=== PATIENT | male | born 1960 | race Caucasian/White ===

== ENCOUNTER 2017-08-12 02:45 | Inpatient (IN) | payer MEDICAID ==
[~2017-08-12] VITALS: Ht 175.3 cm; Wt 69.4 kg
[~2017-08-12 02:45] MED LIST: BENZ0.5T PO; CETI10CA PO; DOCU240C31 PO; DULO30CA2 PO; FEXO180T15 PO; GABA-827 PO; IBUP-1223 PO; LIDO2AMP TP; LIPA1CAP54 PO; LORA-446 PO; MAGN400T26 PO; METH500T7 PO; NAPR500T PO; NICO1PAT16 TD; OXYC1TAB7 PO; OXYC5TAB3 PO; PANT40TA5 PO; PRED20TA PO; RISP2TAB35 PO; TRAM50TA2 PO
[2017-08-12] MEDS ORDERED: SODIUM CHLORIDE 0.9% 1,000ML IVBOLUS ONE ×2 (03:00→04:30)
[2017-08-12] MEDS ORDERED: ONDANSETRON 2MG/ML, 2ML IVPush ONE (03:00)
[2017-08-12] MEDS ORDERED: SODIUM CHLORIDE FLUSH 10ML SYR IVF ONE (03:00)
[2017-08-12] MEDS ORDERED: OXYC5CAP2 PO (03:01)
[2017-08-12] MEDS: MORPHINE SULFATE 4 MG/ML, 1ML IVPush PRN ×2 (03:22→03:55)
[2017-08-12] MEDS ORDERED: OXYC15TA PO (03:30)
[2017-08-12 03:32] LABS: BLOOD UREA NITROGEN 5 mg/dL (7-18)
[2017-08-12 03:33] LABS: ASPARTATE AMINO TRANSFERASE 10 U/L (15-37)
[2017-08-12 03:36] LABS: HEMATOCRIT 34.5 % (39.2-51.8); HEMOGLOBIN 11.7 g/dL (13.7-18.0); WHITE BLOOD COUNT 10.7 x10^3/uL (3.4-10)
[2017-08-12] MEDS ORDERED: MORPHINE SULFATE 4 MG/ML, 1ML ONE (03:53)
[2017-08-12] MEDS ORDERED: POTASSIUM CHLORIDE 20 MEQ in SODIUM CHLORIDE 0.9% 250 ML IV ONE (05:00)
[2017-08-12] MEDS ORDERED: MORPHINE SULFATE 4 MG/ML, 1ML IVPush ONE (05:30)
[2017-08-12 07:20] VITALS: BP 135/87
[2017-08-12] MEDS: morphine SULFATE 10 MG/ML, 1ML IVPush PRN ×5 (09:15→21:59)
[2017-08-12] MEDS ORDERED: hydrALAzine 20 MG/ML, 1ML IVPush PRN (09:30)
[2017-08-12] MEDS ORDERED: ONDANSETRON 2MG/ML, 2ML IVPush PRN (09:30)
[2017-08-12] MEDS ORDERED: LORazepam 1MG TABLET PO PRN (09:30)
[2017-08-12] MEDS: NICOTINE 14MG/24 HR PATCH.TD24 TD SCH (09:30)
[2017-08-12] MEDS ORDERED: HALOPERIDOL 5 MG/ML IM PRN (09:30)
[2017-08-12] MEDS ORDERED: POTASSIUM CHLORIDE 40 MEQ in SODIUM CHLORIDE 0.9% 500 ML IV ONE (10:00)
[2017-08-12] MEDS: SODIUM CHLORIDE 0.9% 1,000 ML IV SCH (10:26)
[2017-08-12] MEDS: PANTOPRAZOLE 40 MG IV IVPush SCH (10:29)
[2017-08-12 14:20] VITALS: BP 137/95
[2017-08-12 14:33] LABS: DAU SCREEN DISCLAIMER
[2017-08-12] MEDS ORDERED: METHOCARBAMOL 500 MG TABLET PO SCH (16:00)
[2017-08-12] MEDS: GABAPENTIN 400 MG CAPSULE PO SCH ×2 (16:34→21:35)
[2017-08-12 19:06] VITALS: BP 161/80
[2017-08-12] MEDS ORDERED: RISPERIDONE 2 MG TABLET PO SCH (21:00)
[2017-08-12] MEDS ORDERED: DULOXETINE 30 MG CAPSULE.DR PO SCH (21:00)
[2017-08-12] MEDS: BENZTROPINE 1 MG TABLET PO SCH (21:00)
[2017-08-12] MEDS: METHOCARBAMOL 750 MG TABLET PO SCH (21:36)
[2017-08-12] MEDS: RISPERIDONE 1 MG TABLET PO SCH (21:36)
[2017-08-13] MEDS: SODIUM CHLORIDE 0.9% 1,000 ML IV SCH ×3 (00:58→19:23)
[2017-08-13 01:53] VITALS: BP 164/95
[2017-08-13 04:48] LABS: BLOOD UREA NITROGEN 6 mg/dL (7-18)
[2017-08-13 04:52] LABS: ASPARTATE AMINO TRANSFERASE 9 U/L (15-37)
[2017-08-13] MEDS: METHOCARBAMOL 750 MG TABLET PO SCH ×4 (05:40→20:38)
[2017-08-13 07:49] VITALS: BP 150/87
[2017-08-13] MEDS: PANTOPRAZOLE 40 MG IV IVPush SCH (08:26)
[2017-08-13] MEDS: morphine SULFATE 10 MG/ML, 1ML IVPush PRN ×5 (08:26→22:32)
[2017-08-13] MEDS: DULOXETINE 30 MG CAPSULE.DR PO SCH (08:34)
[2017-08-13] MEDS: BENZTROPINE 1 MG TABLET PO SCH ×2 (08:34→20:38)
[2017-08-13] MEDS: GABAPENTIN 400 MG CAPSULE PO SCH ×3 (08:34→20:38)
[2017-08-13] MEDS: NICOTINE 14MG/24 HR PATCH.TD24 TD SCH (08:34)
[2017-08-13 13:30] VITALS: BP 165/84
[2017-08-13 19:07] VITALS: BP 146/99
[2017-08-13] MEDS: RISPERIDONE 1 MG TABLET PO SCH (20:38)
[2017-08-14] MEDS: morphine SULFATE 10 MG/ML, 1ML IVPush PRN ×3 (01:39→08:00)
[2017-08-14 01:41] VITALS: BP 156/87
[2017-08-14 05:26] LABS: BLOOD UREA NITROGEN 5 mg/dL (7-18)
[2017-08-14] MEDS: METHOCARBAMOL 750 MG TABLET PO SCH (05:52)
[2017-08-14] MEDS ORDERED: D5%-0.45NACL+KCL 20MEQ 1,000 ML IV SCH (06:00)
[2017-08-14 07:05] VITALS: BP 161/92
[2017-08-14] MEDS: PANTOPRAZOLE 40 MG IV IVPush SCH (08:00)
[2017-08-14] MEDS: DULOXETINE 30 MG CAPSULE.DR PO SCH (08:01)
[2017-08-14] MEDS: NICOTINE 14MG/24 HR PATCH.TD24 TD SCH (08:01)
[2017-08-14] MEDS: BENZTROPINE 1 MG TABLET PO SCH (08:01)
[2017-08-14] MEDS: GABAPENTIN 400 MG CAPSULE PO SCH (08:01)
== END 2017-08-14 10:00 | disposition left against medical advice (07) | DRG 438 ==
LOC: ED 03:35 → EDIP 04:32 → 3NE 07:09
PROVIDERS: ADMIT Internal Medicine; ATTEND Internal Medicine
DX: K85.20 Alcohol induced acute pancreatitis without necrosis or infection (principal); E43 Unspecified severe protein-calorie malnutrition; E87.1 Hypo-osmolality and hyponatremia; Z68.22 Body mass index [BMI] 22.0-22.9, adult; E87.6 Hypokalemia; F10.10 Alcohol abuse, uncomplicated; F31.9 Bipolar disorder, unspecified; F41.9 Anxiety disorder, unspecified; J44.9 Chronic obstructive pulmonary disease, unspecified; M79.7 Fibromyalgia; N40.0 Benign prostatic hyperplasia without lower urinary tract symptoms; Z72.0 Tobacco use; Z91.14 Patient's other noncompliance with medication regimen
CPT/HCPCS: 36415; 80048; 80053; 80307; 81003; 82962; 83690; 83735; 84100; 85025; 93005; 96361; 96374; 96375; 96376; J2405; J3480; C9113; G0479; J2270; J7030; J7040

== ENCOUNTER 2017-08-19 01:15 | Inpatient (IN) | payer MEDICAID ==
[~2017-08-19] VITALS: Ht 175.3 cm; Wt 68.5 kg
[~2017-08-19 01:15] MED LIST changes: +NICO-487 TD; -NICO1PAT16 TD; +OXYC15TA PO; +OXYC5CAP2 PO
[2017-08-19] MEDS ORDERED: HYDROmorphone 1 MG/ML, 1ML IVPush PRN (01:30)
[2017-08-19] MEDS ORDERED: SODIUM CHLORIDE 0.9% 1,000ML IVBOLUS ONE (01:30)
[2017-08-19] MEDS ORDERED: METOCLOPRAMIDE 5 MG/ML, 2ML IVPush ONE (01:30)
[2017-08-19] MEDS ORDERED: DIPHENHYDRAMINE 50 MG/ML, 1ML IVPush ONE (01:30)
[2017-08-19] MEDS ORDERED: METOCLOPRAMIDE 5 MG/ML, 2ML ONE (01:38)
[2017-08-19] MEDS ORDERED: DIPHENHYDRAMINE 50 MG/ML, 1ML ONE (01:38)
[2017-08-19] MEDS ORDERED: HYDROmorphone 1 MG/ML, 1ML ONE ×2 (01:39→03:23)
[2017-08-19 01:49] LABS: HEMATOCRIT 33.6 % (39.2-51.8); HEMOGLOBIN 11.5 g/dL (13.7-18.0); WHITE BLOOD COUNT 8.1 x10^3/uL (3.4-10)
[2017-08-19 02:00] LABS: BLOOD UREA NITROGEN 3 mg/dL (7-18)
[2017-08-19 02:04] LABS: ASPARTATE AMINO TRANSFERASE 12 U/L (15-37)
[2017-08-19] MEDS ORDERED: POTASSIUM CHLORIDE 40 MEQ in SODIUM CHLORIDE 0.9% 500 ML IV ONE (02:30)
[2017-08-19] MEDS ORDERED: NS + 40MEQ KCL 0 ML IV ONE (02:31)
[2017-08-19] MEDS ORDERED: ALBUTEROL/IPRATROPIUM 2.5MG/0.5MG, 3 ML NPPB ONE (03:00)
[2017-08-19] MEDS ORDERED: methylPREDNISolone SOD SUCC 125 MG/2 ML IVP ONE (03:00)
[2017-08-19] MEDS ORDERED: ALBUTEROL/IPRATROPIUM 2.5MG/0.5MG, 3 ML ONE (03:08)
[2017-08-19] MEDS ORDERED: methylPREDNISolone SOD SUCC 125 MG/2 ML ONE (03:09)
[2017-08-19] MEDS ORDERED: HYDROmorphone 1 MG/ML, 1ML IV ONE (04:00)
[2017-08-19] MEDS ORDERED: ALBUTEROL/IPRATROPIUM 2.5MG/0.5MG, 3 ML NPPB PRN (04:30)
[2017-08-19 06:11] VITALS: BP 150/89
[2017-08-19] MEDS ORDERED: ONDANSETRON 2MG/ML, 2ML IVPush PRN (06:30)
[2017-08-19] MEDS ORDERED: hydrALAzine 20 MG/ML, 1ML IVPush PRN (06:30)
[2017-08-19] MEDS: ENOXAPARIN 40 MG/0.4 ML SQ SCH (06:39)
[2017-08-19] MEDS: morphine SULFATE 10 MG/ML, 1ML IVPush PRN ×5 (06:39→22:31)
[2017-08-19] MEDS ORDERED: ALBUTEROL/IPRATROPIUM 2.5MG/0.5MG, 3 ML NPPB SCH (07:00)
[2017-08-19] MEDS: POTASSIUM CHLORIDE 20 MEQ in LACTATED RINGERS 1,000 ML IV SCH ×2 (08:29→17:45)
[2017-08-19] MEDS: PANTOPRAZOLE 40 MG IV IVPush SCH (09:39)
[2017-08-19 13:10] VITALS: BP 129/67
[2017-08-19 18:41] VITALS: BP 139/75
[2017-08-20] MEDS: morphine SULFATE 10 MG/ML, 1ML IVPush PRN ×8 (01:32→23:09)
[2017-08-20 01:47] VITALS: BP 155/76
[2017-08-20] MEDS: POTASSIUM CHLORIDE 20 MEQ in LACTATED RINGERS 1,000 ML IV SCH ×2 (03:44→21:11)
[2017-08-20] MEDS: ENOXAPARIN 40 MG/0.4 ML SQ SCH (06:14)
[2017-08-20 06:26] LABS: HEMATOCRIT 30.9 % (39.2-51.8); HEMOGLOBIN 10.4 g/dL (13.7-18.0); WHITE BLOOD COUNT 9.1 x10^3/uL (3.4-10)
[2017-08-20 06:40] LABS: ASPARTATE AMINO TRANSFERASE 9 U/L (15-37); BLOOD UREA NITROGEN 7 mg/dL (7-18)
[2017-08-20] MEDS ORDERED: ALBUTEROL/IPRATROPIUM 2.5MG/0.5MG, 3 ML NPPB PRN (07:00)
[2017-08-20] MEDS: PANTOPRAZOLE 40 MG IV IVPush SCH (07:36)
[2017-08-20 08:30] VITALS: BP 166/98
[2017-08-20] MEDS ORDERED: POTASSIUM PHOSPHATE 44 MEQ in SODIUM CHLORIDE 0.9% 500 ML IV ONE (10:00)
[2017-08-20 13:27] VITALS: BP 140/82
[2017-08-20 20:00] VITALS: BP 147/89
[2017-08-20] MEDS ORDERED: METHOCARBAMOL 500 MG TABLET PO ONE (20:30)
[2017-08-21 01:44] VITALS: BP 138/80
[2017-08-21] MEDS: morphine SULFATE 10 MG/ML, 1ML IVPush PRN ×7 (02:11→21:32)
[2017-08-21 05:34] LABS: BLOOD UREA NITROGEN 3 mg/dL (7-18)
[2017-08-21] MEDS: ENOXAPARIN 40 MG/0.4 ML SQ SCH (06:30)
[2017-08-21 07:41] VITALS: BP 142/85
[2017-08-21] MEDS: PANTOPRAZOLE 40 MG IV IVPush SCH (08:59)
[2017-08-21] MEDS: POTASSIUM CHLORIDE 20 MEQ in LACTATED RINGERS 1,000 ML IV SCH ×2 (08:59→21:32)
[2017-08-21] MEDS: METHOCARBAMOL 750 MG TABLET PO PRN ×3 (10:42→20:05)
[2017-08-21] MEDS ORDERED: MAGNESIUM SULFATE PMX 2GM/50ML 50 ML IV ONE (11:00)
[2017-08-21 16:13] VITALS: BP_SYST 161; BP_SYST 169; BP_DIAS 81; BP_DIAS 91
[2017-08-21 20:00] VITALS: BP 177/102
[2017-08-21] MEDS: ACETAMINOPHEN 325 MG TABLET PO PRN (20:05)
[2017-08-22] MEDS: morphine SULFATE 10 MG/ML, 1ML IVPush PRN ×7 (01:50→21:01)
[2017-08-22 01:52] VITALS: BP 146/95
[2017-08-22] MEDS: METHOCARBAMOL 750 MG TABLET PO PRN ×3 (04:53→18:10)
[2017-08-22] MEDS: ACETAMINOPHEN 325 MG TABLET PO PRN (04:53)
[2017-08-22 06:20] LABS: ASPARTATE AMINO TRANSFERASE 6 U/L (15-37); BLOOD UREA NITROGEN 2 mg/dL (7-18)
[2017-08-22] MEDS: ENOXAPARIN 40 MG/0.4 ML SQ SCH (06:30)
[2017-08-22 07:39] VITALS: BP 164/96
[2017-08-22] MEDS: PANTOPRAZOLE 40 MG IV IVPush SCH (08:20)
[2017-08-22] MEDS: POTASSIUM CHLORIDE 20 MEQ in LACTATED RINGERS 1,000 ML IV SCH ×2 (08:44→19:37)
[2017-08-22 13:27] VITALS: BP 150/90
[2017-08-22] MEDS ORDERED: BISACODYL 10 MG SUPP PR PRN (17:00)
[2017-08-22 20:30] VITALS: BP 153/82
[2017-08-23] MEDS: morphine SULFATE 10 MG/ML, 1ML IVPush PRN ×7 (00:48→22:29)
[2017-08-23] MEDS: METHOCARBAMOL 750 MG TABLET PO PRN ×3 (02:47→21:33)
[2017-08-23 03:08] VITALS: BP 106/55
[2017-08-23 03:20] VITALS: BP 145/65
[2017-08-23] MEDS: POTASSIUM CHLORIDE 20 MEQ in LACTATED RINGERS 1,000 ML IV SCH (06:22)
[2017-08-23 06:37] LABS: ASPARTATE AMINO TRANSFERASE 9 U/L (15-37); BLOOD UREA NITROGEN 3 mg/dL (7-18)
[2017-08-23 06:59] VITALS: BP 159/78
[2017-08-23] MEDS: ENOXAPARIN 40 MG/0.4 ML SQ SCH (07:30)
[2017-08-23] MEDS: PANTOPRAZOLE 40 MG IV IVPush SCH (07:57)
[2017-08-23 11:00] VITALS: BP 157/78
[2017-08-23] MEDS: NS + 20MEQ KCL 1,000 ML IV SCH (11:52)
[2017-08-23 14:39] VITALS: BP 136/81
[2017-08-23 20:22] VITALS: BP 166/89
[2017-08-24 01:41] VITALS: BP 162/82
[2017-08-24] MEDS ORDERED: KETOROLAC 30 MG/1 ML IM SCH (02:00)
[2017-08-24] MEDS: morphine SULFATE 10 MG/ML, 1ML IVPush PRN ×7 (02:23→21:37)
[2017-08-24 06:06] LABS: HEMATOCRIT 37.8 % (39.2-51.8); HEMOGLOBIN 12.7 g/dL (13.7-18.0); WHITE BLOOD COUNT 6.3 x10^3/uL (3.4-10)
[2017-08-24 06:23] LABS: ASPARTATE AMINO TRANSFERASE 6 U/L (15-37); BLOOD UREA NITROGEN 4 mg/dL (7-18)
[2017-08-24 07:46] VITALS: BP 138/88
[2017-08-24] MEDS ORDERED: KETOROLAC 30 MG/1 ML IM PRN (08:00)
[2017-08-24] MEDS: NS + 20MEQ KCL 1,000 ML IV SCH (09:28)
[2017-08-24] MEDS: PANTOPRAZOLE 40 MG IV IVPush SCH (09:30)
[2017-08-24] MEDS: METHOCARBAMOL 750 MG TABLET PO PRN ×3 (09:31→23:21)
[2017-08-24] MEDS: ENOXAPARIN 40 MG/0.4 ML SQ SCH (09:32)
[2017-08-24] MEDS ORDERED: PVN PER PHARMACY MC PRN (15:00)
[2017-08-24 15:24] VITALS: BP 145/95
[2017-08-24] MEDS ORDERED: SODIUM CHLORIDE 0.9% 1,000 ML IV SCH (16:00)
[2017-08-24] MEDS ORDERED: FILTER, DISP 1.2 MICRON FOR TPN/PVN IV PRN (16:00)
[2017-08-24] MEDS ORDERED: FAT EMULSIONS IV SCH (17:00)
[2017-08-24] MEDS ORDERED: [UNRECOGNIZED DRUG - OTHER] IV SCH (17:00)
[2017-08-24] MEDS ORDERED: DEXTROSE 70% IV SCH (17:00)
[2017-08-24] MEDS ORDERED: AMINO ACID 10% IV SCH (17:00)
[2017-08-24] MEDS ORDERED: DEXTROSE 50%, 50ML SYRINGE IVPush PRN (17:00)
[2017-08-24] MEDS ORDERED: DEXTROSE 10% 500 ML IV PRN (17:00)
[2017-08-24 20:12] VITALS: BP 124/81
[2017-08-24] MEDS ORDERED: INSULIN REGULAR LOW DOSE Q6H X 48HRS SQ-INSULIN SCH (21:00)
[2017-08-25] MEDS: morphine SULFATE 10 MG/ML, 1ML IVPush PRN ×2 (00:46→04:20)
[2017-08-25 01:30] VITALS: BP 144/79
[2017-08-25] MEDS: METHOCARBAMOL 750 MG TABLET PO PRN ×3 (04:20→17:12)
[2017-08-25 06:06] LABS: HEMOGLOBIN 12.8 g/dL (13.7-18.0)
[2017-08-25 07:44] LABS: ASPARTATE AMINO TRANSFERASE 4 U/L (15-37); BLOOD UREA NITROGEN 6 mg/dL (7-18)
[2017-08-25 07:50] VITALS: BP 137/81
[2017-08-25] MEDS ORDERED: OXYcodone IR 5MG TABLET PO PRN (08:00)
[2017-08-25] MEDS: PANTOPRAZOLE 40 MG IV IVPush SCH (09:19)
[2017-08-25] MEDS: ENOXAPARIN 40 MG/0.4 ML SQ SCH (09:20)
[2017-08-25] MEDS ORDERED: TPN PER PHARMACY MC PRN (11:30)
[2017-08-25] MEDS ORDERED: PVN PER PHARMACY MC PRN (11:30)
[2017-08-25] MEDS: OXYcodone IR 5MG TABLET PO SCH ×3 (12:32→20:45)
[2017-08-25 15:02] VITALS: BP 145/86
[2017-08-25] MEDS ORDERED: FILTER, DISP 1.2 MICRON FOR TPN/PVN IV PRN (16:00)
[2017-08-25] MEDS ORDERED: AMINO ACID 10% IV SCH (17:00)
[2017-08-25] MEDS ORDERED: FAT EMULSIONS IV SCH (17:00)
[2017-08-25] MEDS ORDERED: DEXTROSE 70% IV SCH (17:00)
[2017-08-25] MEDS ORDERED: DEXTROSE 50%, 50ML SYRINGE IVPush PRN (17:00)
[2017-08-25] MEDS ORDERED: [UNRECOGNIZED DRUG - OTHER] IV SCH (17:00)
[2017-08-25] MEDS ORDERED: DEXTROSE 10% 500 ML IV PRN (17:00)
[2017-08-25] MEDS: GABAPENTIN 300 MG CAPSULE PO SCH ×2 (17:12→20:45)
[2017-08-25] MEDS: PANCRELIPASE 24,000 CAPSULE.DR PO SCH ×2 (17:12→20:46)
[2017-08-25] MEDS: HYDROmorphone 1 MG/ML, 1ML IV PRN ×2 (17:34→22:29)
[2017-08-25 20:00] VITALS: BP 147/87
[2017-08-25] MEDS: INSULIN REGULAR LOW DOSE Q6H X 48HRS SQ-INSULIN SCH (20:00)
[2017-08-25] MEDS: BENZTROPINE 1 MG TABLET PO SCH (20:47)
[2017-08-25] MEDS ORDERED: RISPERIDONE 2 MG TABLET PO SCH (22:00)
[2017-08-25] MEDS: DULOXETINE 30 MG CAPSULE.DR PO SCH (22:28)
[2017-08-25] MEDS: RISPERIDONE 1 MG TABLET PO SCH (22:28)
[2017-08-26] MEDS: OXYcodone IR 5MG TABLET PO SCH ×6 (00:30→22:38)
[2017-08-26] MEDS: INSULIN REGULAR LOW DOSE Q6H X 48HRS SQ-INSULIN SCH ×4 (02:00→20:00)
[2017-08-26 02:21] VITALS: BP 145/96
[2017-08-26 06:39] LABS: BLOOD UREA NITROGEN 4 mg/dL (7-18)
[2017-08-26] MEDS: BENZTROPINE 1 MG TABLET PO SCH ×2 (09:00→20:28)
[2017-08-26] MEDS ORDERED: DULOXETINE 30 MG CAPSULE.DR PO SCH (09:00)
[2017-08-26] MEDS: ENOXAPARIN 40 MG/0.4 ML SQ SCH (10:19)
[2017-08-26] MEDS: PANTOPRAZOLE 40 MG IV IVPush SCH (10:19)
[2017-08-26] MEDS: PANCRELIPASE 24,000 CAPSULE.DR PO SCH ×3 (10:21→20:28)
[2017-08-26] MEDS: RISPERIDONE 1 MG TABLET PO SCH ×2 (10:22→20:28)
[2017-08-26] MEDS: GABAPENTIN 300 MG CAPSULE PO SCH ×3 (10:22→20:27)
[2017-08-26] MEDS: DULOXETINE 30 MG CAPSULE.DR PO SCH ×2 (10:22→20:28)
[2017-08-26] MEDS: TAMSULOSIN 0.4 MG CAP.ER.24H PO SCH (10:22)
[2017-08-26] MEDS ORDERED: HYDROmorphone 1 MG/ML, 1ML IV PRN (11:30)
[2017-08-26] MEDS: MORPHINE SULFATE 4 MG/ML, 1ML IVPush PRN ×4 (13:20→23:31)
[2017-08-26 14:52] VITALS: BP 114/78
[2017-08-26] MEDS ORDERED: DEXTROSE 70% IV SCH (17:00)
[2017-08-26] MEDS ORDERED: FAT EMULSIONS IV SCH (17:00)
[2017-08-26] MEDS: FILTER, DISP 1.2 MICRON FOR TPN/PVN IV PRN (17:00)
[2017-08-26] MEDS ORDERED: AMINO ACID 10% IV SCH (17:00)
[2017-08-26] MEDS ORDERED: [UNRECOGNIZED DRUG - OTHER] IV SCH (17:00)
[2017-08-26] MEDS ORDERED: INSULIN REGULAR LOW DOSE QDAY SQ-INSULIN SCH (21:00)
[2017-08-26 21:38] VITALS: BP 127/80
[2017-08-27] MEDS: INSULIN REGULAR LOW DOSE Q6H X 48HRS SQ-INSULIN SCH ×3 (02:00→14:53)
[2017-08-27] MEDS: OXYcodone IR 5MG TABLET PO SCH ×5 (02:07→21:12)
[2017-08-27 02:14] VITALS: BP 101/67
[2017-08-27] MEDS: MORPHINE SULFATE 4 MG/ML, 1ML IVPush PRN ×5 (05:48→22:57)
[2017-08-27 06:00] LABS: BLOOD UREA NITROGEN 5 mg/dL (7-18)
[2017-08-27 07:14] VITALS: BP 105/69
[2017-08-27] MEDS: PANCRELIPASE 24,000 CAPSULE.DR PO SCH ×3 (08:49→19:49)
[2017-08-27] MEDS: ENOXAPARIN 40 MG/0.4 ML SQ SCH (08:49)
[2017-08-27] MEDS: PANTOPRAZOLE 40 MG IV IVPush SCH (08:49)
[2017-08-27] MEDS: TAMSULOSIN 0.4 MG CAP.ER.24H PO SCH (08:49)
[2017-08-27] MEDS: RISPERIDONE 1 MG TABLET PO SCH ×2 (08:50→19:49)
[2017-08-27] MEDS: BENZTROPINE 1 MG TABLET PO SCH ×2 (08:50→19:49)
[2017-08-27] MEDS: GABAPENTIN 300 MG CAPSULE PO SCH ×3 (08:50→19:49)
[2017-08-27] MEDS: DULOXETINE 30 MG CAPSULE.DR PO SCH ×2 (08:50→19:49)
[2017-08-27] MEDS: METHOCARBAMOL 750 MG TABLET PO PRN (09:07)
[2017-08-27] MEDS: INSULIN REGULAR LOW DOSE QDAY SQ-INSULIN SCH (12:00)
[2017-08-27 14:45] VITALS: BP 124/73
[2017-08-27] MEDS: FILTER, DISP 1.2 MICRON FOR TPN/PVN IV PRN (16:51)
[2017-08-27] MEDS ORDERED: FAT EMULSIONS IV SCH (17:00)
[2017-08-27] MEDS ORDERED: AMINO ACID 10% IV SCH (17:00)
[2017-08-27] MEDS ORDERED: DEXTROSE 70% IV SCH (17:00)
[2017-08-27] MEDS ORDERED: [UNRECOGNIZED DRUG - OTHER] IV SCH (17:00)
[2017-08-27 18:29] VITALS: BP 115/78
[2017-08-28] MEDS: OXYcodone IR 5MG TABLET PO SCH ×5 (01:17→12:08)
[2017-08-28 03:14] VITALS: BP 122/80
[2017-08-28] MEDS: MORPHINE SULFATE 4 MG/ML, 1ML IVPush PRN (06:12)
[2017-08-28 06:16] LABS: BLOOD UREA NITROGEN 8 mg/dL (7-18)
[2017-08-28 06:42] VITALS: BP 103/69
[2017-08-28] MEDS: PANTOPRAZOLE 40 MG IV IVPush SCH (08:09)
[2017-08-28] MEDS: RISPERIDONE 1 MG TABLET PO SCH (08:09)
[2017-08-28] MEDS: TAMSULOSIN 0.4 MG CAP.ER.24H PO SCH (08:09)
[2017-08-28] MEDS: GABAPENTIN 300 MG CAPSULE PO SCH (08:09)
[2017-08-28] MEDS: ENOXAPARIN 40 MG/0.4 ML SQ SCH (08:09)
[2017-08-28] MEDS: DULOXETINE 30 MG CAPSULE.DR PO SCH (08:10)
[2017-08-28] MEDS: PANCRELIPASE 24,000 CAPSULE.DR PO SCH (08:10)
[2017-08-28] MEDS: BENZTROPINE 1 MG TABLET PO SCH (08:12)
[2017-08-28] MEDS ORDERED: LACTULOSE 10 GM/15 ML UDC PO SCH (09:00)
[2017-08-28] MEDS: METHOCARBAMOL 750 MG TABLET PO PRN (10:38)
[2017-08-28] MEDS: INSULIN REGULAR LOW DOSE QDAY SQ-INSULIN SCH (12:00)
[2017-08-28 16:22] VITALS: BP 113/74
== END 2017-08-28 17:14 | disposition home or self-care (01) | DRG 438 ==
LOC: SUATTDRO 01:36 → ED 03:37 → EDIP 03:38 → 4WST 05:27
PROVIDERS: ADMIT Hospitalist; ATTEND Family Medicine
PROC: 02HV33Z Insertion of Infusion Device into Superior Vena Cava, Percutaneous Approach (ICD-10-PCS; principal; 2017-08-25)
PROC: B548ZZA Ultrasonography of Superior Vena Cava, Guidance (ICD-10-PCS; 2017-08-25)
PROC: 3E0336Z Introduction of Nutritional Substance into Peripheral Vein, Percutaneous Approach (ICD-10-PCS; 2017-08-25)
DX: K85.20 Alcohol induced acute pancreatitis without necrosis or infection (principal); E43 Unspecified severe protein-calorie malnutrition; E87.1 Hypo-osmolality and hyponatremia; J44.9 Chronic obstructive pulmonary disease, unspecified; E87.6 Hypokalemia; Z68.22 Body mass index [BMI] 22.0-22.9, adult; D63.8 Anemia in other chronic diseases classified elsewhere; D53.9 Nutritional anemia, unspecified; E83.39 Other disorders of phosphorus metabolism; F17.200 Nicotine dependence, unspecified, uncomplicated; F31.9 Bipolar disorder, unspecified; G89.29 Other chronic pain; K86.1 Other chronic pancreatitis; K86.0 Alcohol-induced chronic pancreatitis; M79.7 Fibromyalgia; F10.10 Alcohol abuse, uncomplicated; F41.9 Anxiety disorder, unspecified; M19.90 Unspecified osteoarthritis, unspecified site; R00.1 Bradycardia, unspecified
CPT/HCPCS: 36415; 36569; 71010; 74181; 76700; 76937; 77001; 80048; 80053; 80307; 82040; 82533; 82962; 83690; 83735; 84100; 84134; 84443; 84478; 85025; 94640; 96361; 96374; 96375; 96376; J0610; J1170; J1650; J2405; J3475; J3480; J7620; C1751; C9113; G0479; J1200; J2270; J2765; J2930; J3420; J7030; J7040; J7120

== ENCOUNTER 2017-10-30 01:22 | Emergency (ER) | payer MEDICAID ==
[~2017-10-30] VITALS: Ht 180.3 cm; Wt 78.0 kg
[2017-10-30] MEDS ORDERED: ONDANSETRON 2MG/ML, 2ML IVPush ONE (02:00)
[2017-10-30] MEDS ORDERED: HYDROmorphone 1 MG/ML, 1ML IVPush PRN (02:00)
[2017-10-30] MEDS ORDERED: SODIUM CHLORIDE 0.9% 1,000ML IVBOLUS ONE (02:00)
[2017-10-30 02:14] LABS: HEMATOCRIT 32.3 % (39.2-51.8); HEMOGLOBIN 10.8 g/dL (13.7-18.0); WHITE BLOOD COUNT 7.5 x10^3/uL (3.4-10)
[2017-10-30 02:23] LABS: ASPARTATE AMINO TRANSFERASE 11 U/L (15-37); BLOOD UREA NITROGEN 2 mg/dL (7-18)
[2017-10-30] MEDS ORDERED: ONDANSETRON 2MG/ML, 2ML ONE (02:29)
[2017-10-30] MEDS ORDERED: HYDROmorphone 1 MG/ML, 1ML ONE ×2 (02:29→07:04)
[2017-10-30] MEDS ORDERED: LORazepam 1MG TABLET PO ONE (02:30)
[2017-10-30] MEDS ORDERED: LORazepam 1MG TABLET ONE (02:42)
[2017-10-30] MEDS ORDERED: OMNIPAQUE 350 MG/ML, 100ML BOTTLE ONE (03:14)
[2017-10-30] MEDS ORDERED: POTASSIUM CHLORIDE 20 MEQ TAB.ER.PRT ONE (05:00)
[2017-10-30] MEDS ORDERED: POTASSIUM CHLORIDE 20 MEQ TAB.ER.PRT PO ONE (05:00)
[2017-10-30 07:05] VITALS: BP 138/93
== END 2017-10-30 07:17 | disposition home or self-care (01) ==
LOC: ED 02:12
DX: G89.29 Other chronic pain (principal); K86.0 Alcohol-induced chronic pancreatitis; R11.2 Nausea with vomiting, unspecified; R19.7 Diarrhea, unspecified; E87.6 Hypokalemia
CPT/HCPCS: 36415; 74177; 80053; 83690; 85025; 96361; 96374; 96375; 99285; J1170; J2405; J7030; Q9967

== ENCOUNTER 2018-03-09 13:35 | Inpatient (IN) | payer MEDICAID ==
[~2018-03-09] VITALS: Ht 175.3 cm; Wt 66.2 kg
[~2018-03-09 13:35] MED LIST changes: +ALBU18HF INH; +FINA5TAB PO; +METR500T PO; +NAPR-856 PO; -NAPR500T PO; +NICO-486 TD; +POLY17PO5 PO; +PRED10TA PO; +PROP20TA PO; +RISP3TAB3 PO; +SUCR1TAB33 PO; +TAMS-11 PO
[2018-03-09] MEDS ORDERED: SODIUM CHLORIDE FLUSH 10ML SYR IVF ONE (16:00)
[2018-03-09] MEDS ORDERED: SODIUM CHLORIDE 0.9% 1,000ML IVBOLUS ONE (16:00)
[2018-03-09] MEDS ORDERED: ONDANSETRON ODT 4 MG PO ONE (16:00)
[2018-03-09] MEDS ORDERED: ONDANSETRON 2MG/ML, 2ML IVPush ONE (16:00)
[2018-03-09 16:03] LABS: BASOPHILS # (AUTO) 0.04 x10^3/uL (0-0.1); BASOPHILS % (AUTO) 0 % (0-1); EOSINOPHILS # (AUTO) 0.03 x10^3/uL (0-0.4); EOSINOPHILS % (AUTO) 0 % (1-7); LYMPHOCYTES # (AUTO) 1.87 x10^3/uL (1-3.4); LYMPHOCYTES % (AUTO) 18 % (22-44); MD NO; MEAN CORPUSCULAR HEMOGLOBIN 27.1 pg (27.5-34.5); MEAN CORPUSCULAR HGB CONC 31.7 g/dL (33.2-36.2); MEAN CORPUSCULAR VOLUME 85.5 fL (81-97); MEAN PLATELET VOLUME 6.1 fL (7.4-10.4); MONOCYTES # (AUTO) 0.71 x10^3/uL (0.2-0.8); MONOCYTES % (AUTO) 7 % (2-9); NEUTROPHILS # (AUTO) 7.89 x10^3/uL (1.8-6.8); NEUTROPHILS % (AUTO) 75 % (42-75); PLATELET COUNT 874 x10^3/uL (130-400); RED CELL DISTRIBUTION WIDTH 18.6 % (9.4-14.8)
[2018-03-09 16:08] LABS: ALANINE AMINOTRANSFERASE 18 U/L (12-78); ALBUMIN 2.7 g/dL (3.4-5.0); ANION GAP 7 mmol/L (5-15); CALCIUM 8.6 mg/dL (8.5-10.1); CHLORIDE 101 mmol/L (98-107); CREATININE 0.54 mg/dL (0.7-1.3)
[2018-03-09 16:11] LABS: ALKALINE PHOSPHATASE 80 U/L (45-117); BILIRUBIN,TOTAL 0.3 mg/dL (0.2-1.0); TOTAL PROTEIN 7.1 g/dL (6.4-8.2)
[2018-03-09] MEDS ORDERED: OMNIPAQUE 350 MG/ML, 100ML BOTTLE ONE (16:50)
[2018-03-09] MEDS ORDERED: MORPHINE SULFATE 4 MG/ML, 1ML ONE ×2 (17:41→19:48)
[2018-03-09] MEDS ORDERED: ONDANSETRON ODT 4 MG ONE (17:41)
[2018-03-09] MEDS: MORPHINE SULFATE 4 MG/ML, 1ML IVPush PRN ×2 (17:45→19:55)
[2018-03-09] MEDS ORDERED: BISACODYL 10 MG SUPP PR PRN (18:00)
[2018-03-09] MEDS ORDERED: ONDANSETRON 2MG/ML, 2ML IVPush PRN (18:00)
[2018-03-09] MEDS ORDERED: ENALAPRILAT 1.25 MG/ML, 2ML IVPush PRN (18:00)
[2018-03-09] MEDS ORDERED: POLYETHYLENE GLYCOL 17 GM PACKET PO PRN (18:00)
[2018-03-09] MEDS ORDERED: ONDANSETRON ODT 4 MG PO PRN (18:00)
[2018-03-09] MEDS ORDERED: LABETALOL 5MG/ML, 20ML IVPush PRN (18:00)
[2018-03-09] MEDS ORDERED: DOCUSATE 100 MG CAPSULE PO PRN (18:00)
[2018-03-09] MEDS ORDERED: NICOTINE 7 MG/24 HR PATCH.TD24 TD SCH (18:00)
[2018-03-09] MEDS ORDERED: ALBUTEROL SULFATE 2.5 MG/3 ML NPPB PRN ×2 (19:00→20:30)
[2018-03-09] MEDS ORDERED: RISPERIDONE 1 MG TABLET ONE (20:50)
[2018-03-09] MEDS: METHOCARBAMOL 750 MG TABLET PO SCH (21:01)
[2018-03-09] MEDS: SODIUM CHLORIDE 0.9% 1,000 ML IV SCH (21:01)
[2018-03-09] MEDS: GABAPENTIN 400 MG CAPSULE PO SCH (21:01)
[2018-03-09] MEDS: PANTOPROZOLE 40MG TABLET PO SCH (21:01)
[2018-03-09] MEDS: PANCRELIPASE 5000 CAPSULE.DR PO SCH (21:02)
[2018-03-09] MEDS: RISPERIDONE 2 MG TABLET PO SCH (21:02)
[2018-03-09] MEDS: PROPRANOLOL 20 MG TABLET PO SCH (21:02)
[2018-03-09] MEDS: BENZTROPINE 1 MG TABLET PO SCH (21:02)
[2018-03-09] MEDS: DULOXETINE 30 MG CAPSULE.DR PO SCH (21:02)
[2018-03-09 21:09] VITALS: BP 155/91
[2018-03-10 01:36] VITALS: BP 127/84
[2018-03-10] MEDS: OXYcodone IR 5MG TABLET PO PRN ×2 (01:44→10:03)
[2018-03-10 04:31] LABS: BASOPHILS # (AUTO) 0.07 x10^3/uL (0-0.1); BASOPHILS % (AUTO) 1 % (0-1); EOSINOPHILS % (AUTO) 1 % (1-7); LYMPHOCYTES # (AUTO) 2.05 x10^3/uL (1-3.4); LYMPHOCYTES % (AUTO) 25 % (22-44); MD NO; MEAN CORPUSCULAR HEMOGLOBIN 27.5 pg (27.5-34.5); MEAN CORPUSCULAR HGB CONC 32.1 g/dL (33.2-36.2); MEAN CORPUSCULAR VOLUME 85.5 fL (81-97); MEAN PLATELET VOLUME 6.1 fL (7.4-10.4); MONOCYTES # (AUTO) 0.79 x10^3/uL (0.2-0.8); MONOCYTES % (AUTO) 10 % (2-9); NEUTROPHILS # (AUTO) 5.37 x10^3/uL (1.8-6.8); NEUTROPHILS % (AUTO) 64 % (42-75); PLATELET COUNT 802 x10^3/uL (130-400); RED BLOOD COUNT 2.97 x10^6/uL (4.38-5.82)
[2018-03-10 04:42] LABS: ALBUMIN 2.3 g/dL (3.4-5.0); ANION GAP 11 mmol/L (5-15); CALCIUM 8.1 mg/dL (8.5-10.1); CHLORIDE 109 mmol/L (98-107)
[2018-03-10 04:48] LABS: ALANINE AMINOTRANSFERASE 15 U/L (12-78); ALKALINE PHOSPHATASE 63 U/L (45-117); BILIRUBIN,TOTAL 0.2 mg/dL (0.2-1.0); CHOL/HDL RATIO 4.7; CHOLESTEROL, TOTAL 107 mg/dL (140-239); CREATININE 0.41 mg/dL (0.7-1.3); HDL CHOL % 21 % (26-37); HDL CHOLESTEROL (DIRECT) 23 mg/dL (40-60); LDL CHOLESTEROL,CALCULATED 67 mg/dL (54-169); LDL/HDL RATIO 2.9 (0.5-3.0); TOTAL PROTEIN 6.1 g/dL (6.4-8.2); TRIGLYCERIDES 83 mg/dL (50-200); VLDL CHOLESTEROL 17 mg/dL (0-25)
[2018-03-10] MEDS: SODIUM CHLORIDE 0.9% 1,000 ML IV SCH (05:33)
[2018-03-10] MEDS: METHOCARBAMOL 750 MG TABLET PO SCH ×2 (05:33→10:03)
[2018-03-10] MEDS: PROPRANOLOL 20 MG TABLET PO SCH (05:37)
[2018-03-10 06:55] VITALS: BP 131/76
[2018-03-10] MEDS ORDERED: LIDO700A42 ID (07:47)
[2018-03-10] MEDS ORDERED: RISPERIDONE 1 MG TABLET ONE (08:22)
[2018-03-10] MEDS: DULOXETINE 30 MG CAPSULE.DR PO SCH (08:24)
[2018-03-10] MEDS: GABAPENTIN 400 MG CAPSULE PO SCH (08:24)
[2018-03-10] MEDS: BENZTROPINE 1 MG TABLET PO SCH (08:24)
[2018-03-10] MEDS: PANCRELIPASE 5000 CAPSULE.DR PO SCH (08:24)
[2018-03-10] MEDS: RISPERIDONE 2 MG TABLET PO SCH (08:25)
[2018-03-10] MEDS: PANTOPROZOLE 40MG TABLET PO SCH (08:25)
[2018-03-10] MEDS ORDERED: TAMSULOSIN 0.4 MG CAP.ER.24H PO SCH (09:00)
[2018-03-10] MEDS ORDERED: FINASTERIDE 5 MG TABLET PO SCH (09:00)
== END 2018-03-10 12:00 | disposition home or self-care (01) | DRG 438 ==
LOC: ED 16:19 → EDIP 17:07 → 3NW 20:02
PROVIDERS: ADMIT Hospitalist; ATTEND Hospitalist
DX: K85.00 Idiopathic acute pancreatitis without necrosis or infection (principal); G93.40 Encephalopathy, unspecified; E44.0 Moderate protein-calorie malnutrition; K86.3 Pseudocyst of pancreas; E87.1 Hypo-osmolality and hyponatremia; K86.1 Other chronic pancreatitis; D64.9 Anemia, unspecified; Z68.21 Body mass index [BMI] 21.0-21.9, adult; F17.200 Nicotine dependence, unspecified, uncomplicated; F31.9 Bipolar disorder, unspecified; G89.29 Other chronic pain; F41.9 Anxiety disorder, unspecified
CPT/HCPCS: 36415; 74177; 80053; 80061; 82140; 83605; 83690; 83735; 84100; 85025; 94640; 99285; Q0162; Q9967; J7030

== ENCOUNTER 2018-04-11 02:49 | Inpatient (IN) | payer MEDICAID ==
[~2018-04-11] VITALS: Ht 175.3 cm; Wt 70.0 kg
[~2018-04-11 02:49] MED LIST changes: +ACID1TAB3 PO; -BENZ0.5T PO; +BENZ0.5T35 PO; +FERR-51 PO; +LIDO700A42 ID
[2018-04-11] MEDS ORDERED: MORPHINE SULFATE 4 MG/ML, 1ML ONE ×2 (03:11→04:27)
[2018-04-11] MEDS ORDERED: PROCHLORPERAZINE 5 MG/ML, 2ML ONE (03:11)
[2018-04-11] MEDS: MORPHINE SULFATE 4 MG/ML, 1ML IVPush PRN ×2 (03:20→04:29)
[2018-04-11 03:29] LABS: BASOPHILS # (AUTO) 0.04 x10^3/uL (0-0.1); BASOPHILS % (AUTO) 0 % (0-1); EOSINOPHILS # (AUTO) 0.21 x10^3/uL (0-0.4); EOSINOPHILS % (AUTO) 2 % (1-7); LYMPHOCYTES # (AUTO) 1.15 x10^3/uL (1-3.4); LYMPHOCYTES % (AUTO) 10 % (22-44); MD NO; MEAN CORPUSCULAR HEMOGLOBIN 28.3 pg (27.5-34.5); MEAN CORPUSCULAR HGB CONC 32.1 g/dL (33.2-36.2); MEAN CORPUSCULAR VOLUME 88.1 fL (81-97); MEAN PLATELET VOLUME 6.6 fL (7.4-10.4); MONOCYTES # (AUTO) 0.48 x10^3/uL (0.2-0.8); MONOCYTES % (AUTO) 4 % (2-9); NEUTROPHILS # (AUTO) 9.94 x10^3/uL (1.8-6.8); NEUTROPHILS % (AUTO) 84 % (42-75); PLATELET COUNT 377 x10^3/uL (130-400); RED BLOOD COUNT 3.73 x10^6/uL (4.38-5.82); RED CELL DISTRIBUTION WIDTH 20.4 % (9.4-14.8)
[2018-04-11] MEDS ORDERED: PROCHLORPERAZINE 5 MG/ML, 2ML IVPush ONE (03:30)
[2018-04-11 03:36] LABS: ALANINE AMINOTRANSFERASE 9 U/L (12-78); ALBUMIN 2.7 g/dL (3.4-5.0); ANION GAP 9 mmol/L (5-15); CALCIUM 8.4 mg/dL (8.5-10.1); CHLORIDE 100 mmol/L (98-107); CREATININE 0.51 mg/dL (0.7-1.3)
[2018-04-11 03:41] LABS: ALKALINE PHOSPHATASE 80 U/L (45-117); BILIRUBIN,TOTAL 0.7 mg/dL (0.2-1.0); TOTAL PROTEIN 6.4 g/dL (6.4-8.2); TROPONIN I < 0.015 ng/mL (0.000-0.045)
[2018-04-11] MEDS ORDERED: SODIUM CHLORIDE 0.9% 1,000ML IVBOLUS ONE (04:00)
[2018-04-11] MEDS ORDERED: SODIUM CHLORIDE 0.9% 1,000 ML IV ONE (04:19)
[2018-04-11] MEDS ORDERED: MORPHINE SULFATE 4 MG/ML, 1ML IVPush PRN (04:30)
[2018-04-11] MEDS ORDERED: FERROUS SULFATE 325 MG TABLET PO SCH (05:00)
[2018-04-11] MEDS ORDERED: ONDANSETRON ODT 4 MG PO PRN (05:00)
[2018-04-11] MEDS ORDERED: PROMETHAZINE 25 MG/ML, 1ML IM PRN (05:00)
[2018-04-11] MEDS ORDERED: ALBUTEROL SULFATE 2.5 MG/3 ML HHN PRN (05:00)
[2018-04-11] MEDS ORDERED: LACTOBACILLUS CHEW TABLET PO PRN (05:00)
[2018-04-11 05:28] VITALS: BP 132/86
[2018-04-11] MEDS: ENOXAPARIN 40 MG/0.4 ML SQ SCH (05:56)
[2018-04-11] MEDS: POTASSIUM CHLORIDE 20 MEQ in LACTATED RINGERS 1,000 ML IV SCH ×3 (05:57→18:37)
[2018-04-11] MEDS: LIDODERM 5% PATCH TD SCH (08:40)
[2018-04-11] MEDS: RISPERIDONE 1 MG TABLET PO SCH ×2 (08:41→22:08)
[2018-04-11] MEDS: PANCRELIPASE 5000 CAPSULE.DR PO SCH ×3 (08:41→22:08)
[2018-04-11] MEDS: DULOXETINE 30 MG CAPSULE.DR PO SCH ×2 (08:41→22:08)
[2018-04-11] MEDS: PANTOPROZOLE 40MG TABLET PO SCH ×2 (08:42→22:08)
[2018-04-11] MEDS: GABAPENTIN 400 MG CAPSULE PO SCH ×3 (08:42→22:08)
[2018-04-11] MEDS: FINASTERIDE 5 MG TABLET PO SCH (08:42)
[2018-04-11] MEDS: BENZTROPINE 1 MG TABLET PO SCH ×2 (08:42→22:08)
[2018-04-11] MEDS: TAMSULOSIN 0.4 MG CAP.ER.24H PO SCH (08:43)
[2018-04-11] MEDS: PROPRANOLOL 20 MG TABLET PO SCH ×4 (08:43→18:40)
[2018-04-11] MEDS ORDERED: ALBUTEROL SULFATE 2.5 MG/3 ML NPPB PRN (09:00)
[2018-04-11] MEDS: HYDROmorphone 2 MG/ML, 1ML IVPush PRN ×3 (11:01→20:05)
[2018-04-11 14:58] VITALS: BP 127/86
[2018-04-11 19:20] VITALS: BP 166/90
[2018-04-12] VITALS (7 sets, daily range): BP systolic 145–185; BP diastolic 72–107
[2018-04-12] MEDS: HYDROmorphone 2 MG/ML, 1ML IVPush PRN ×4 (00:11→18:22)
[2018-04-12] MEDS: POTASSIUM CHLORIDE 20 MEQ in LACTATED RINGERS 1,000 ML IV SCH ×2 (01:30→07:44)
[2018-04-12] MEDS: ENOXAPARIN 40 MG/0.4 ML SQ SCH (05:10)
[2018-04-12 05:13] LABS: BASOPHILS # (AUTO) 0.08 x10^3/uL (0-0.1); BASOPHILS % (AUTO) 1 % (0-1); EOSINOPHILS # (AUTO) 0.62 x10^3/uL (0-0.4); EOSINOPHILS % (AUTO) 10 % (1-7); LYMPHOCYTES # (AUTO) 1.76 x10^3/uL (1-3.4); LYMPHOCYTES % (AUTO) 28 % (22-44); MD NO; MEAN CORPUSCULAR HEMOGLOBIN 29.2 pg (27.5-34.5); MEAN CORPUSCULAR HGB CONC 32.8 g/dL (33.2-36.2); MEAN CORPUSCULAR VOLUME 89.2 fL (81-97); MEAN PLATELET VOLUME 6.7 fL (7.4-10.4); MONOCYTES # (AUTO) 0.49 x10^3/uL (0.2-0.8); MONOCYTES % (AUTO) 8 % (2-9); NEUTROPHILS # (AUTO) 3.41 x10^3/uL (1.8-6.8); NEUTROPHILS % (AUTO) 54 % (42-75); PLATELET COUNT 352 x10^3/uL (130-400); RED BLOOD COUNT 3.28 x10^6/uL (4.38-5.82); RED CELL DISTRIBUTION WIDTH 20.2 % (9.4-14.8)
[2018-04-12 05:16] LABS: INTERNATIONAL NORMALIZED RATIO 1.1 (0.93-1.1); PROTHROMBIN TIME 11.4 Seconds (9.6-11.5)
[2018-04-12 05:23] LABS: CHLORIDE 105 mmol/L (98-107)
[2018-04-12 05:40] LABS: ALANINE AMINOTRANSFERASE 7 U/L (12-78); ALBUMIN 2.5 g/dL (3.4-5.0); ALKALINE PHOSPHATASE 66 U/L (45-117); ANION GAP 7 mmol/L (5-15); BILIRUBIN,TOTAL 0.7 mg/dL (0.2-1.0); CALCIUM 8.1 mg/dL (8.5-10.1); CREATININE 0.38 mg/dL (0.7-1.3); TOTAL PROTEIN 5.7 g/dL (6.4-8.2)
[2018-04-12] MEDS: hydrALAzine 20 MG/ML, 1ML IVPush PRN ×3 (07:03→16:37)
[2018-04-12] MEDS: PANCRELIPASE 5000 CAPSULE.DR PO SCH ×3 (08:29→21:35)
[2018-04-12] MEDS: PANTOPROZOLE 40MG TABLET PO SCH ×2 (08:29→21:35)
[2018-04-12] MEDS: RISPERIDONE 1 MG TABLET PO SCH ×2 (08:29→21:41)
[2018-04-12] MEDS: TAMSULOSIN 0.4 MG CAP.ER.24H PO SCH (08:29)
[2018-04-12] MEDS: DULOXETINE 30 MG CAPSULE.DR PO SCH ×2 (08:30→21:35)
[2018-04-12] MEDS: BENZTROPINE 1 MG TABLET PO SCH ×2 (08:30→21:35)
[2018-04-12] MEDS: GABAPENTIN 400 MG CAPSULE PO SCH ×3 (08:30→21:35)
[2018-04-12] MEDS: FINASTERIDE 5 MG TABLET PO SCH (08:31)
[2018-04-12] MEDS: LIDODERM 5% PATCH TD SCH (08:32)
[2018-04-12] MEDS ORDERED: LACTATED RINGERS 1,000 ML IV SCH (13:30)
[2018-04-12] MEDS ORDERED: LABETALOL 5MG/ML, 20ML IVPush PRN (14:00)
[2018-04-12] MEDS ORDERED: AMLODIPINE 5 MG TABLET PO SCH (14:00)
[2018-04-12] MEDS: OXYcodone IR 5MG TABLET PO PRN ×2 (15:15→19:49)
[2018-04-12] MEDS: METHOCARBAMOL 750 MG TABLET PO PRN ×2 (15:15→19:49)
[2018-04-12] MEDS ORDERED: ACETAMINOPHEN 325 MG TABLET ONE (16:06)
[2018-04-12] MEDS: PROPRANOLOL 20 MG TABLET PO SCH (16:13)
[2018-04-12] MEDS ORDERED: ACETAMINOPHEN 325 MG TABLET PO PRN (16:30)
[2018-04-12] MEDS ORDERED: OMNIPAQUE 350 MG/ML, 100ML BOTTLE ONE (17:25)
[2018-04-13] MEDS ORDERED: POTASSIUM CHLORIDE 20 MEQ in LACTATED RINGERS 1,000 ML IV SCH (04:48)
== END 2018-04-12 23:45 | disposition left against medical advice (07) | DRG 438 ==
LOC: ED 03:49 → EDIP 04:19 → 4NOR 05:10
PROVIDERS: ADMIT Hospitalist; ATTEND Hospitalist
DX: K85.90 Acute pancreatitis without necrosis or infection, unspecified (principal); E43 Unspecified severe protein-calorie malnutrition; I10 Essential (primary) hypertension; D63.8 Anemia in other chronic diseases classified elsewhere; F31.9 Bipolar disorder, unspecified; K86.1 Other chronic pancreatitis; K22.70 Barrett's esophagus without dysplasia; E87.6 Hypokalemia; F17.210 Nicotine dependence, cigarettes, uncomplicated; G89.29 Other chronic pain; M54.9 Dorsalgia, unspecified; Z68.22 Body mass index [BMI] 22.0-22.9, adult
CPT/HCPCS: 36415; 71045; 71275; 80053; 83690; 83735; 84100; 84484; 85025; 85610; 93005; 94640; 96361; 96374; 96375; 96376; J1170; J1650; J3480; J7613; Q9967; J0360; J0780; J7030; J7120